=== PATIENT | female | born 2000 | race Native Hawaiian/Other Pacific Islander ===

== ENCOUNTER 2022-03-09 11:49 | Outpatient (CLI) | payer BC, SELFPAY ==
--- NOTE | 2022-03-09 12:00 | CRLHL7_ITS ---
For Patients: As a result of the Century Cures Act, medical imaging exams and procedure reports are released immediately into your electronic medical record. You may view this report before your referring provider. If you have questions, please contact your health care provider. CLINICAL HISTORY: Missing IUD string TECHNIQUE: 2D martinez scale and color Doppler images were acquired of the pelvis using a transvaginal approach. FINDINGS: On transvaginal imaging, the myometrium has a normal uniform echotexture. The uterus measures 6.6 x 2.8 x 3.9 cm. Intrauterine device located within the endometrial canal. The left ovary measures 3.1 x 1.9 x 2.4 cm in size and the right ovary measures 3.6 x 1.6 x 2.6 cm. The ovaries demonstrate normal arterial and venous blood flow on color Doppler analysis. There are no suspicious fluid collections within the cul-de-sac. IMPRESSION: IUD in the endometrial canal in good position. Dictated by Lee Lopez MD @ 03/09/2022 12:53:04 PM (Electronically Signed)
== END 2022-03-09 11:50 | disposition home or self-care (01) ==
LOC: US 11:50
PROVIDERS: Visit Provider Registered Nurse
DX: T83.32XA Displacement of intrauterine contraceptive device, initial encounter (principal)
CPT/HCPCS: 76830; 87491; 87591